=== PATIENT | female | born 1950 | race Caucasian/White ===

== ENCOUNTER 2018-01-01 14:18 | Observation (INO) | payer OTHER ==
[~2018-01-01] VITALS: Ht 162.6 cm; Wt 92.0 kg
[2018-01-01 15:12] LABS: BASOPHIL (%) 1.2 % (0-1); BASOPHIL COUNT 0.1 K/uL (0-0.1); EOSINOPHIL (%) 3.7 % (0-5); EOSINOPHIL COUNT 0.3 K/uL (0-0.3); HEMATOCRIT 42.6 % (36.0-46.0); HEMOGLOBIN 14.6 G/DL (11.9-15.5); IMMATURE GRANULOCYTE (%) 0.4 % (0.0-0.7); LYMPHOCYTE COUNT 1.5 K/uL (1.0-2.8); MCH 29.6 PG (29.0-34.0); MCHC 34.3 G/DL (30.0-36.0); MCV 86.4 FL (83-99); MONOCYTE (%) 8.8 % (3-12); MONOCYTE COUNT 0.6 K/uL (0-0.8); NEUTROPHIL (%) 63.9 % (45-76); NEUTROPHIL COUNT 4.3 K/uL (1.8-6.4); PLATELET COUNT 264 K/uL (156-360); RBC DIS.WIDTH-CV 12.7 % (11.8-14.6); RBC DIS.WIDTH-SD 39.8 % (39-53); RED BLOOD COUNT 4.93 M/uL (3.80-5.20); WHITE BLOOD COUNT 6.7 K/uL (4.1-10.2)
[2018-01-01 15:20] LABS: ALBUMIN 4.4 g/dL (3.2-4.8)
[2018-01-01 15:21] LABS: CHLORIDE 104 mEq/L (99-109); SODIUM 140 mEq/L (136-147)
[2018-01-01 15:23] LABS: GLUCOSE 108 mg/dL (70-99); TOTAL PROTEIN 7.2 g/dL (6.4-8.3)
[2018-01-01 15:25] LABS: TOTAL BILIRUBIN 0.4 mg/dL (0.0-1.0)
[2018-01-01 15:26] LABS: ALKALINE PHOSPHATASE 72 IU/L (3-129)
[2018-01-01 15:27] LABS: CREATININE 0.8 mg/dL (0.6-1.3); GFR ESTIMATE (CALCULATED) > 59 mL/min/
[2018-01-01 15:28] LABS: AST (GOT) 26 IU/L (2-34); UREA NITROGEN (BUN) 13 mg/dL (9-23)
[2018-01-01 15:30] LABS: ALT (GPT) 28 IU/L (3-49); LIPASE 122 U/L (1.0-51.0)
[2018-01-01 15:32] LABS: TROP-I INTERPRETATION NEGATIVE; TROPONIN-I 0.02 ng/mL (0.0-0.30)
[2018-01-01 16:09] LABS: APPEARANCE CLEAR ((CLEAR)); BILIRUBIN NEGATIVE; BLOOD NEGATIVE; COLOR COLORLESS ((YELLOW)); GLUCOSE (STRIP) NEGATIVE; KETONES NEGATIVE; LEUKOCYTES NEGATIVE; NITRITE NEGATIVE; PROTEIN (STRIP) NEGATIVE; SPECIFIC GRAVITY 1.004 (1.000-1.030); UCUL ADDED? NO; UROBILINOGEN 0.2 MG/DL (0.2-1.0)
[2018-01-01 17:30] LABS: THYROTROPIN (TSH) 3.1 MIU/L (0.4-5.5)
[2018-01-01] MEDS ORDERED: MENOPAUSE SUPPO20 MG PO (19:06)
[2018-01-01] MEDS ORDERED: FISH OIL 1,0001 EAC7 PO (19:06)
[2018-01-01] MEDS ORDERED: HYDROCHLOROTHIA25 MG PO (19:06)
[2018-01-01] MEDS ORDERED: DAILY VALUE1 EACH PO (19:06)
[2018-01-01] MEDS ORDERED: ADULT ASPIRIN R81 MG PO (19:06)
[2018-01-01 21:35] VITALS: BP 170/81
[2018-01-01 21:42] LABS: HDL CHOLESTEROL 40 MG/DL (Desirable>=50); LDL CHOLESTEROL 98 mg/dL (Desirable<100); MAGNESIUM 2.2 mg/dl (1.3-2.7); NON-HDL CHOLESTEROL 148 mg/dL (Desirable<160); PHOSPHORUS 3.1 mg/dL (2.5-4.9); TOTAL CHOLESTEROL 188 mg/dL (Desirable<200); TRIGLYCERIDES 252 MG/DL (Normal: <150)
[2018-01-01 22:02] LABS: ERTH.SED.RATE 18 MM/HR (0-30)
[2018-01-02 01:17] LABS: TROP-I INTERPRETATION NEGATIVE; TROPONIN-I < 0.01 ng/mL (0.0-0.30)
[2018-01-02 03:09] VITALS: BP 125/64
[2018-01-02 05:38] LABS: HEMATOCRIT 39.8 % (36.0-46.0); HEMOGLOBIN 13.2 G/DL (11.9-15.5); MCH 28.9 PG (29.0-34.0); MCHC 33.2 G/DL (30.0-36.0); MCV 87.3 FL (83-99); PLATELET COUNT 237 K/uL (156-360); RBC DIS.WIDTH-CV 12.6 % (11.8-14.6); RBC DIS.WIDTH-SD 40.3 % (39-53); RED BLOOD COUNT 4.56 M/uL (3.80-5.20); WHITE BLOOD COUNT 6.6 K/uL (4.1-10.2)
[2018-01-02 05:47] LABS: TROP-I INTERPRETATION NEGATIVE; TROPONIN-I < 0.01 ng/mL (0.0-0.30)
[2018-01-02 07:22] VITALS: BP 144/84
[2018-01-02 11:36] VITALS: BP 122/84
[2018-01-02 13:09] LABS: LYME DISEASE SEROLOGY SCREEN NEGATIVE (NEGATIVE)
[2018-01-02 13:59] LABS: HEMOGLOBIN A1c (GLYCOHEMOGLOB) 6.4 % (Below 5.7)
== END 2018-01-02 15:17 | disposition home or self-care (01) ==
LOC: EME 14:18 → EDOF 19:50 → ENRESERV 19:52 → 4SOUTH 21:25
PROVIDERS: Emergency Medicine; Hospitalist
PROC: B246ZZZ Ultrasonography of Right and Left Heart (ICD-10-PCS; principal; 2018-01-01)
DX: R25.1 Tremor, unspecified (principal); E16.2 Hypoglycemia, unspecified; R53.1 Weakness; I10 Essential (primary) hypertension; R73.03 Prediabetes; Z88.0 Allergy status to penicillin; Z88.2 Allergy status to sulfonamides; Z88.1 Allergy status to other antibiotic agents; Z79.82 Long term (current) use of aspirin; Z79.899 Other long term (current) drug therapy
CPT/HCPCS: 70450; 70551; 71046; 74177; 80053; 80061; 81003; 82948; 83036; 83690; 83735; 84100; 84443; 84484; 84681; 85025; 85027; 85651; 86618; 93005; 93306; 95819; 99281; 99285; G0378